=== PATIENT | male | born 1960 | race Caucasian/White ===

== ENCOUNTER 2025-01-14 20:11 | Emergency (ER) | payer MEDICARE, SELFPAY ==
[2025-01-14 20:14] VITALS: BP 163/84
--- NOTE | 2025-01-14 21:08 | ED.GENMED ---
History of Present Illness
General
Chief Complaint: Swelling
Source: patient
Exam Limitations: none
Time Seen by Provider: 01/14/25 21:07
Nursing documentation reviewed up to this point in time: agreed with
History of Present Illness
History of Present Illness:
Patient is a 64-year-old male who presents to the ER for evaluation. Patient has multiple complaints.. patient reports he has not had a family doctor and is concerned about his health because he has had a lot of weight gain and a lot of lower
extremity swelling and pain from arthritis in his legs for weeks 'and even months'. Patient reports he does get off-and-on chest pain and off-and-on shortness of breath when he walks up steps.
He does have a history of high cholesterol and was recommended to take medicine but reports he does not ' believe in that.'
Patient does not smoke
He drinks ' hardly ever'
Past History
Past History
ED Past Medical History: None
ED Past Surgical History: Other
Patient has exhibited threatening behavior?: No
Social History
Tobacco: Non-smoker
Alcohol: Occasional
Drug: None
Employment: Employed
Review of Systems
Review of Systems
Allergies reviewed?: Yes
All Other Systems: ROS reviewed and negative except as documented in HPI and ROS
Constitutional: Reports no symptoms; Denies fever, fatigue or chills
EENT: Reports no symptoms
Respiratory: Reports trouble breathing (' I noticed this since I gain weight')
Cardiac: Reports chest pain ('off and on' )
ABD/GI: Reports abdominal pain (Intermittent right side abdominal pain); Denies nausea, vomiting, diarrhea or constipated
: Reports no symptoms; Denies flank pain, urgency, bleeding or discharge
Musculoskeletal: Reports other ( b/l leg swelling )
Skin: Reports no symptoms
Neurological: Reports no symptoms
Psychiatric: Reports no symptoms
Phy Exam
General Physical Exam
General Presentation: no apparent distress
General age: appears stated age
General Skin: warm and dry
General Habitus: obese
General Mental: alert
General Hydration: appears well hydrated
Cardiovascular Exam
Cardiovascular Exam: regular rate/rhythm, no murmur and normal peripheral pulses
Pulmonary Exam
Pulmonary Exam: lungs clear and no respiratory distress
Neurological Exam
Neurological Exam: alert and oriented x3
Musculoskeletal Exam
Musculoskeletal Exam: full ROM and other (Patient with edema to bilateral extremitie(foot/ankle and lower leg) however strong distal pulses; no erythema)
Skin Exam
Skin Exam: normal color and warm/dry
Psychiatric Exam
Psychiatric Exam: normal mood/affect
Scores
Heart Failure Risk
Heart Failure Risk Score: Not Applicable
Course
Orders/Labs/Results
Orders:
Orders
01/14/25 21:24
IV Insert/Care/Rem.- Treatment PRN
Peripheral Venous Lwr Ext Bilat US [US Periph Venous LOWER Ext Humphrey] Urgent
Comment:
Reason For Exam: swelling
01/14/25 21:25
Cardiac Monitoring- Treatment ONCE
CR Chest - 2 Views Urgent
Comment:
Reason For Exam: sob
01/14/25 21:34
Complete Blood Count/With Diff Urgent
Comprehensive Metabolic Panel Urgent
NT-proBNP Urgent
Troponin I Urgent
01/14/25 21:36
Electrocardiogram (*1) Stat
Reason for Study: Other
Other Reason for Exam: chest pain
EKG- Treatment ONCE
01/15/25 00:24
CT Abd/pelvis W Iv Cont Urgent
Comment:
Reason For Exam: pain
Abnormal Lab Results
01/14/25
21:34
RBC 4.62 L 10^6/uL
(4.70-6.10)
MCHC 32.7 L g/dL
(33.0-37.0)
Absolute Monos (auto) 0.8 H 10^3/uL
(0.1-0.6)
Glucose 122 H mg/dl
(70-99)
01/14/25 21:34
01/14/25 21:34
Vital Signs
Initial and Last Documented VS:
Initial Vital Signs
Temp Pulse Resp BP Pulse Ox
98.9 F 86 20 163/84 96
01/14/25 20:14 01/14/25 20:14 01/14/25 20:14 01/14/25 20:14 01/14/25 20:14
Last Documented Vital Signs
Temp Pulse Resp BP Pulse Ox
98.9 F 80 24 113/59 97
01/14/25 20:14 01/15/25 01:16 01/15/25 01:16 01/15/25 01:16 01/15/25 01:16
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
Marine Electrician Apprentice consulted with physician?: Yes
Name of Physician Consulted: Josef
MDM/Problems Addressed
MDM/Problems Addressed:
64 yr. old male presented for evaluation. Patient has multiple complaints and requests. He does not have a family doctor and stopped taking his medication years ago including cholesterol medication.
HE reports he has gained weight and swelling in his legs for weeks to months. He does at times complain of mild shortness of breath however he reports this only increased since he gained a lot of weight. He has no chest pain. He wanted to make
sure his' lungs pancreas and kidneys were normal.'
he presents awake alert no acute distress anxious .
He is non toxic appearing, lungs are clear not hypoxic nontachycardic negative troponin negative BNP, chest x-ray negative. Patient does have dependent edema lower extremity ultrasounds bilaterally are negative.
Patient was very concerned and wanted to ensure his kidneys were functioning; he does report that he has had some intermittent pain in his abdomen. CAT scan was done and negative. Work up is negative here in the ED. will recommend that he follow
up with a family physician
Pt
*Critical Care Note
Total Time (30-74mins, 75-104mins- exclusive of procedures): Not Applicable
ED Attending Note
-
Portions of this chart may have been created with voice recognition software.� Occasional wrong word or��sound alike� substitutions may have occurred due to the inherent limitations of voice recognition software.
Discharge Plan
Departure
Patient Disposition: Home (Routine Discharge)
Date of Disposition: 01/15/25
Time of Disposition: 01:33
Patient with high blood pressure during this ER visit?: Yes
Condition: Fair
Covid-19: Not Applicable
Discharge Problem:
Dependent edema
Instructions: Dependent Edema (DC), BLOOD PRESSURE
Prescriptions:
No Action
cholecalciferol (vitamin D3) [Vitamin D3] 400 UNITS tablet
2,000 units PO DAILY
vitamin B complex Tablet
1 tab PO DAILY
omeprazole 20 mg Tablet,Disintegrat, Delay Rel
20 mg PO DAILY
selenium
1 tab PO DAILY
zinc Tablet,Chewable
18.5 tab PO DAILY
Referrals:
UNKNOWN - PT DOES,NOT KNOW [Family Provider] -
Activity Restrictions/Additional Instructions:
Follow-up with family doctor for further reevaluation of lower extremity swelling. You may wear compression stockings and keep legs elevated as much as possible. As discussed your labs are unremarkable and your chest x-ray and abdominal CAT scan
were unremarkable. Your ultrasounds were negative for DVT.
Interventions
Interventions:
*Risk Screen - Suicide Last Done: 01/14/25 20:14
*General Assessment Last Done: 01/14/25 20:14
*Neglect/Abuse Screening Last Done: 01/14/25 20:14
*ED COVID-19 Vaccine History Last Done: 01/14/25 21:15
ED- Cardiac Assessment Last Done: 01/14/25 21:36
ED- Pulmonary Assessment Last Done: 01/14/25 21:36
ED-Skin Assessment Last Done: 01/14/25 21:41
Discharge Date and Time
Print Language: SURINAMESE
[2025-01-14 21:26] VITALS: BP 139/88
[2025-01-14 21:47] LABS: % Basophils 0.6 % (0-2); % Eosinophils 4.6 % (0-6); % Immature Granulocytes 0.2 % (0-0.5); % Neutrophils 47.6 % (42.2-75.2); Absolute Basophils 0.1 10^3/uL (0-0.2); Absolute Eosinophils 0.4 10^3/uL (0-0.7); Absolute Lymphocytes 3.3 10^3/uL (1.2-3.4); Absolute Monocytes 0.8 10^3/uL (0.1-0.6); Absolute Neutrophils 4.1 10^3/uL (1.4-6.5); Hematocrit 39.7 % (39.0-52.0); Mean Corp Hgb Conc. 32.7 g/dL (33.0-37.0); Mean Corpuscular Hgb 28.1 pg (27.0-31.0); Mean Corpuscular Volume 85.9 fL (80.0-94.0); Mean Platelet Volume 10.1 fL (7.4-10.4); Nucleated Red Blood Cells % 0 % (-); Platelet Count 234 10^3/uL (130-400); Red Blood Cell Count 4.62 10^6/uL (4.70-6.10); Red Cell Dist. Width 13.1 % (11.5-14.5); White Blood Cell Count 8.6 10^3/uL (4.8-10.8)
[2025-01-14 22:00] VITALS: BP 141/78
[2025-01-14 22:06] LABS: ALT (SGPT) 24 U/L (0-50); AST (SGOT) 36 U/L (17-59); Albumin 3.9 g/dl (3.5-5.0); Alkaline Phosphatase 63 U/L (38-126); Blood Urea Nitrogen 19 mg/dl (9-20); Calcium 9.4 mg/dl (8.4-10.2); Carbon Dioxide 27 mmol/L (22-30); Chloride 105 mmol/L (98-107); Glucose 122 mg/dl (70-99); Potassium 4.4 mmol/L (3.5-5.1); Sodium 137 mmol/L (135-145); Total Bilirubin 0.5 mg/dl (0.2-1.3); Total Protein 6.3 g/dl (6.3-8.2); eGFR > 60.00
[2025-01-14 22:12] LABS: NT-proBNP < 20.0 pg/ml; Troponin I < 0.012 ng/ml
[2025-01-14 22:48] VITALS: BP 149/76
[2025-01-14 23:00] VITALS: BP 148/104
[2025-01-15 00:18] VITALS: BP 140/76
[2025-01-15 01:16] VITALS: BP 113/59
== END 2025-01-15 01:42 | disposition home or self-care (01) ==
LOC: EMR 20:11
PROVIDERS: Nurse Practitioner; EMERGENCY PHYSICIAN Student in an Organized Health Care Education/Training Program
DX: R60.0 Localized edema (principal); R07.89 Other chest pain; R06.02 Shortness of breath; R10.9 Unspecified abdominal pain; R03.0 Elevated blood-pressure reading, without diagnosis of hypertension; M19.90 Unspecified osteoarthritis, unspecified site; E78.00 Pure hypercholesterolemia, unspecified; T46.6X6A Underdosing of antihyperlipidemic and antiarteriosclerotic drugs, initial encounter; Z91.148 Patient's other noncompliance with medication regimen for other reason; E66.9 Obesity, unspecified; J45.909 Unspecified asthma, uncomplicated; G47.30 Sleep apnea, unspecified; K21.9 Gastro-esophageal reflux disease without esophagitis; Z87.442 Personal history of urinary calculi; Z91.040 Latex allergy status; Z91.048 Other nonmedicinal substance allergy status
CPT/HCPCS: 99285; 71046; 74177; 80053; 83880; 84484; 85025; 93005; 93970; Q9967